=== PATIENT | male | born 1980 | race Caucasian/White ===

== ENCOUNTER 2022-11-20 08:59 | Outpatient (REF) | payer BC, SELFPAY ==
[2022-11-20 09:09] LABS: MANUAL DIFF FLAG NO
[2022-11-20 09:28] LABS: Basophils Absolute Auto 0.1 X10*3/uL (0.0-0.2); Basophils Percent Auto 1.7 % (0-2); Eosinophils Absolute Auto 0.1 X10*3/uL (0.0-0.4); Eosinophils Percent Auto 2.2 % (0-4); Hematocrit 45.6 % (42.0-52.0); Hemoglobin 15.7 g/dl (14.0-18.0); Lymphocytes Absolute Auto 1.5 X10*3/uL (1.2-4.9); Lymphocytes Percent Auto 41.2 % (20-40); Mean Corpuscular HGB Conc 34.4 g/dl (31.0-36.0); Mean Corpuscular Hemoglobin 30.2 pg (27.0-33.0); Mean Corpuscular Volume 87.7 fL (80.0-98.0); Mean Platelet Volume 8.9 fL (9.4-12.4); Monocytes Absolute Auto 0.5 X10*3/uL (0.1-1.2); Monocytes Percent Auto 12.9 % (2-11); Neutrophils Absolute Auto 1.5 x10*3/uL (2.0-8.3); Platelet Count 182 X10*3/uL (160-400); Red Cell Distribution Width 12.8 % (11.0-16.0); White Blood Count 3.6 X10*3/uL (4.8-10.8)
[2022-11-20 09:55] LABS: Alanine Aminotransferase 15 U/L (0-40); Albumin Level 4.5 g/dL (3.5-5.0); Alkaline Phosphatase 63 U/L (39-117); Anion Gap 14 (12-20); Aspartate Amino Transferase 15 U/L (5-37); Bilirubin Total 0.7 mg/dL (0.0-1.0); Blood Urea Nitrogen 17 mg/dL (9-16); Calcium 9.2 mg/dL (8.4-10.2); Carbon Dioxide 31 mmol/L (22-29); Chloride 102 mmol/L (96-108); Estimated Glomerular Filt Rate > 60; Glucose Fasting 70 mg/dL (60-99); Iron 80 mcg/dL (45-160); Percent Iron Saturation 30 % (15-50); Potassium 4.7 mmol/L (3.3-5.1); Sodium 142 mmol/L (135-145); Total Iron Binding Capacity 269 mcg/dL (228-428); Total Protein 6.9 g/dL (6.5-8.0); Unsaturated Iron Binding 189 ug/dL
[2022-11-20 10:24] LABS: Folate 5.3 ng/mL (> or = 4.0); Thyroid Stimulating Hormone 0.38 uIU/mL (0.32-4.0); Vitamin B12 822 pg/mL (200-900); Vitamin D 25-OH Total 100.5 ng/mL (>30)
[2022-11-22 02:23] LABS: Lyme Abs Screen <0.90 index
== END 2022-11-20 09:00 | disposition home or self-care (01) ==
LOC: HO.LAB 08:59
PROVIDERS: PCP Internal Medicine; Visit Provider Internal Medicine
DX: D64.9 Anemia, unspecified (principal); E89.0 Postprocedural hypothyroidism; R53.83 Other fatigue; E55.9 Vitamin D deficiency, unspecified; E53.8 Deficiency of other specified B group vitamins
CPT/HCPCS: 36415; 80053; 82306; 82607; 82746; 83540; 84443; 85025; 86617; 86618

== ENCOUNTER → 2022-11-23 13:52 | Outpatient (BNV) | payer BC, SELFPAY | PROVIDERS: PCP Internal Medicine; Visit Provider Internal Medicine Medical Oncology | DX: D72.819 Decreased white blood cell count, unspecified (principal) | CPT/HCPCS: 99204; 99213 ==

== ENCOUNTER 2022-12-08 10:21 | Outpatient (REF) | payer BC, SELFPAY ==
[2022-12-08 10:37] LABS: MANUAL DIFF FLAG NO
[2022-12-08 10:55] LABS: Basophils Absolute Auto 0.1 X10*3/uL (0.0-0.2); Basophils Percent Auto 2.8 % (0-2); Eosinophils Absolute Auto 0.1 X10*3/uL (0.0-0.4); Eosinophils Percent Auto 3.4 % (0-4); Hematocrit 45.6 % (42.0-52.0); Hemoglobin 15.6 g/dl (14.0-18.0); Lymphocytes Absolute Auto 1.4 X10*3/uL (1.2-4.9); Lymphocytes Percent Auto 42.9 % (20-40); Mean Corpuscular HGB Conc 34.2 g/dl (31.0-36.0); Mean Corpuscular Hemoglobin 30.4 pg (27.0-33.0); Mean Corpuscular Volume 88.7 fL (80.0-98.0); Monocytes Absolute Auto 0.4 X10*3/uL (0.1-1.2); Monocytes Percent Auto 11.6 % (2-11); Neutrophils Absolute Auto 1.3 x10*3/uL (2.0-8.3); Neutrophils Percent Auto 39.3 % (45-73); Platelet Count 214 X10*3/uL (160-400); Red Blood Count 5.14 X10*6/uL (4.60-5.80); Red Cell Distribution Width 13.1 % (11.0-16.0); White Blood Count 3.2 X10*3/uL (4.8-10.8)
[2022-12-08 11:26] LABS: Alanine Aminotransferase 15 U/L (0-40); Albumin Level 4.6 g/dL (3.5-5.0); Alkaline Phosphatase 69 U/L (39-117); Anion Gap 14 (12-20); Aspartate Amino Transferase 15 U/L (5-37); Bilirubin Total 0.7 mg/dL (0.0-1.0); Blood Urea Nitrogen 12 mg/dL (9-16); C Reactive Protein < 0.10 mg/dL (< or = 0.50); Calcium 10.2 mg/dL (8.4-10.2); Carbon Dioxide 30 mmol/L (22-29); Chloride 104 mmol/L (96-108); Estimated Glomerular Filt Rate > 60; Glucose Random 85 mg/dL (60-115); Lactate Dehydrogenase 163 U/L (118-273); Potassium 5.1 mmol/L (3.3-5.1); Sodium 143 mmol/L (135-145); Total Protein 7.3 g/dL (6.5-8.0)
[2022-12-08 11:39] LABS: Erythrocyte Sedimentation Rate 2 MM/HR (0-15)
[2022-12-08 11:56] LABS: Creatinine Urine 114.81 mg/dL; Total Protein Urine Random < 7 mg/dL (<12)
[2022-12-10 15:03] LABS: Complement C3 91 mg/dL (82-185)
[2022-12-10 17:24] LABS: Calcium, Random Urine 17.5 mg/dL
[2022-12-11 10:48] LABS: Calcium, Ionized 5.2 mg/dL (4.7-5.5)
[2022-12-11 16:44] LABS: Calcium (PTHI) 9.9 mg/dL (8.6-10.3); PTHI 27 pg/mL (16-77)
[2022-12-12 06:53] LABS: Anti DNA DS Antibody 1 IU/mL; Antibody to SS-A Antigen <1.0 NEG AI (<1.0 NEG); Antibody to SS-B Antigen <1.0 NEG AI (<1.0 NEG); SM/Ribonucleoprotein Ab <1.0 NEG AI (<1.0 NEG); Smith Protein <1.0 NEG AI (<1.0 NEG)
== END 2022-12-08 10:22 | disposition home or self-care (01) ==
LOC: HO.LAB 10:21
PROVIDERS: Internal Medicine Medical Oncology; Absent Provider Internal Medicine; PCP Internal Medicine; Visit Provider Internal Medicine Rheumatology
DX: D72.819 Decreased white blood cell count, unspecified (principal); E83.52 Hypercalcemia; R76.8 Other specified abnormal immunological findings in serum
CPT/HCPCS: 36415; 80053; 82310; 82330; 82550; 83615; 83970; 84156; 85025; 85652; 86140; 86160; 86225; 86235

== ENCOUNTER 2023-01-16 10:52 | Outpatient (AMB) | payer BC, SELFPAY ==
--- NOTE | 2023-01-16 10:54 | MHC.OFFVIS ---
Intake Vital Signs 01/16/23 10:55 Height 5 ft 6 in Weight 146 lb 13.246 oz BMI 23.7 BP 108/82 Blood Pressure Location Rt brachial Position Sitting Pulse 116 H Pulse Source Pulse Oximeter Temp 97.9 F Temp Source Skin Pulse Oximetry (%) 98 Intake Visit Reasons: + KAMALJIT - Confirmed Intake Note: New pt presents today for consult. Denies pain Referred by Hematology for leukopenia and fatigue. 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 Accompanied by: Self / Same As Patient Allergies zolpidem [From Ambien] Adverse Reaction (Intermediate, Verified 01/16/23 10:58) loopiness Medication List - Last Reconciled 01/16/23 by Kathie Sam MD atorvastatin 20 mg PO BEDTIME blood sugar diagnostic ([employer] Verio test strips) As directed bupropion HCl 300 mg PO DAILY gabapentin 300 mg PO BEDTIME 90 days insulin aspart U-100 (Novolog U-100 Insulin aspart) Sliding scale subcutaneously daily; insulin degludec (Tresiba U-100 Insulin) Sliding scale subcutaneously daily; insulin syr/ndl U100 half shaniqua (BD Veo Insulin Syringe Ultra-Fine (half unit)) As directed levothyroxine (Levoxyl) 175 mcg PO DAILY 90 days modafinil 100 mg PO BID HPI HPI Comments History of Present Illness Details This is a 42-year-old male who presents for evaluation of a positive KAMALJIT. KAMALJIT was checked in the setting of neutropenia. Patient states that he was diagnosed with type 1 diabetes at age 3 and was also diagnosed with Graves disease. For the last 10 years patient has had fatigue. Recently he was evaluated by Hematology for neutropenia and fatigue. Patient states that he sleeps 8 hours at night but does wake up feeling significantly fatigued. He snores occasionally and it is usually positional. He has skin rashes on his forehead, lateral to his nose and in the mustache and de leon area, does rashes are a little worse in the summer, improved with Nizoral cream and ketoconazole oil. He has had does rashes for approximately 10 years. Denies ever getting a butterfly rash on his cheeks. He denies any joint pain, swelling or morning stiffness. Denies any blood or frothy in the urine. Denies any history of DVT/PE. Denies any fevers or significant weight change. [facility] Medical History Diabetes mellitus type 1 Graves disease Physical exam Postoperative hypothyroidism Surgical History History of shoulder surgery History of thyroid surgery History of wisdom tooth extraction Family History Mother No problems noted. Father No problems noted. 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 Current occupational exposures/hazards: No Cognitive needs: No Hearing needs: No Vision needs: No Review of Systems Const Reports fatigue, Denies weight gain and Denies weight loss ENT Denies sore throat Resp Reports no additional complaints Musc Denies arthralgias, Denies joint swelling and Denies stiffness Skin/Breast Reports rash Endo Reports fatigue Physical Exam Vital Signs: Last Vital Signs Temp 97.9 F 01/16/23 10:55 Pulse 116 H 01/16/23 10:55 BP 108/82 01/16/23 10:55 Pulse Ox 98 01/16/23 10:55 BMI result Body Mass Index 23.7 Const General: cooperative, healthy appearing and comfortable Nutritional Appearance: average body habitus Orientation/consciousness: patient oriented x3 Limitations: no limitations HEENT Head: Yes normocephalic and Yes atraumatic Mouth: moist mucous membranes Resp Effort & Inspection: normal respiratory effort and able to speak in complete sentences Auscultation: clear to auscultation bilaterally Cardio Rate: regular rate Rhythm: regular rhythm Heart sounds: S1 normal heart sound present GI Inspection: No distended Palpation (GI): Soft to palpation and nontender Skin Other: Rashes on his forehead, lateral to his nose, few scaly lesions seen on his de leon No malar rash Neuro General: patient oriented x3 Extrem Other: No active synovitis Normal nailfold capillaroscopy Reduced left shoulder abduction (was operated on) Assessment & Plan Assessment & Plan (1) KAMALJIT positive: Code(s): R76.8 - Other specified abnormal immunological findings in serum Plan: This is a 42-year-old male who presents for evaluation of a positive KAMALJIT 1-320 DFS in the setting of neutropenia. I do not see any signs of autoimmune rheumatic disease upon my evaluation. Comprehensive sub serology is normal with normal inflammatory markers. Patient's main complaint is fatigue which can be related to poor sleep. I suggested that patient ask for a sleep study from his PCP. Advised patient to come back for evaluation if he gets any new symptoms suggestive of a connective tissue disease such as new rashes, joint pain swelling or stiffness, blood or frothy in the urine Follow-up in 1 year Coding Level of Care Code New Pt Level 3 (43489) Diagnoses KAMALJIT positive R76.8
[2023-01-16 10:55] VITALS: BP 108/82; PULSE 116; TEMP 36.6; O2SAT 98; BMI 23.7
== END 2023-01-16 11:49 | disposition home or self-care (01) ==
PROVIDERS: PCP Internal Medicine; Visit Provider Student in an Organized Health Care Education/Training Program
DX: R76.8 Other specified abnormal immunological findings in serum (principal)
CPT/HCPCS: 99203

== ENCOUNTER → 2023-01-16 10:52 | Outpatient (BNVA) | payer BC, SELFPAY | PROVIDERS: PCP Internal Medicine; Visit Provider Student in an Organized Health Care Education/Training Program ==

== ENCOUNTER 2023-11-25 17:22 | Outpatient (AMB) | payer BC, SELFPAY ==
[2023-11-25 17:27] VITALS: BP 112/80; BMI 25.8
--- NOTE | 2023-11-25 17:27 | A.OFFPC_ITS ---
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 Accompanied by: Self / Same As Patient Allergies zolpidem [From Ambien] Adverse Reaction (Intermediate, Verified 11/25/23 17:40) loopiness Medication List - Last Reconciled 11/25/23 by Alysha Armendariz MD atorvastatin 20 mg PO BEDTIME blood sugar diagnostic (OneTouch Verio test strips) As directed clonazepam 1 mg PO BEDTIME PRN gabapentin 600 mg PO BEDTIME insulin aspart U-100 (Novolog U-100 Insulin aspart) Sliding scale subcutaneously daily; insulin degludec (Tresiba U-100 Insulin) Sliding scale subcutaneously daily; insulin syr/ndl U100 half shaniqua (BD Veo Insulin Syringe Ultra-Fine (half unit)) As directed levothyroxine (Levoxyl) 175 mcg PO DAILY 90 days modafinil 100 mg PO BID Tobacco use date assessed: 11/25/23 Dental Screening Dental Screen Date: 11/25/23 Did you have a dental visit in the last 12 months?: No Did you have a dental problem in the last 6 months where you did not have access to dental care?: No Was dental information given to patient?: Patient has dentist HPI HPI Comments History of Present Illness Details This is a 43-year-old male with diabetes mellitus type 1 and mild major depression that comes for his physical exam. A1c within goal. Last diabetic eye exam was less than a year ago and was with no diabetic retinopathy. Depression stable with counseling and follow-up visit requested. No chest pain or shortness on breath. Follows with endocrinology. [facility] Medical History (Updated 11/25/23 @ 17:58 by Alysha Armendariz MD) Physical exam Postoperative hypothyroidism Graves disease Diabetes mellitus type 1 Surgical History History of wisdom tooth extraction History of shoulder surgery History of thyroid surgery Family History Mother No problems noted. Father No problems noted. 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 1. Little interest or pleasure in doing things: not at all 2. Feeling down, depressed, or hopeless: several days 3. Trouble falling or staying asleep, or sleeping too much: not at all 4. Feeling tired or having little energy: not at all 5. Poor appetite or overeating: not at all 6. Feeling bad about yourself - or that you are a failure or have let yourself or your family down: not at all 7. Trouble concentrating on things, such as reading the newspaper or watching television: not at all 8. Moving or speaking so slowly that other people could have noticed. Or the opposite - being so fidgety or restless that you have been moving around a lot more than usual: not at all 9. Thoughts that you would be better off or of hurting yourself in some way: not at all Total score: 1 Depression Screening Interpretation: Positive Depression Screening Follow-up: Existing condition, In treatment, Community Mental Health Worker F/U and Follow- up Visit Requested Depression Screening Done: Yes 71010 - PHQ-9 Billing: Yes Source: Developed by Drs. Oscar Santos, Kinza Aiken, Jim Conroy and colleagues, with an educational josefina from [employer] Thrive Questionnaire Date Thrive assessed: 11/25/23 I am a: Patient What is your living situation today?: I have a steady place to live Within the past 12 months, did the food you bought not last and you didn't have the money to get more?: Never true Within the past 12 months, did you worry whether your food would run out before you got money to buy more?: Never true Do you have trouble paying for medicines?: No Do you have trouble getting transportation to medical appointments?: No Do you have trouble paying your heating and electricity bill?: No Do you have trouble taking care of your child, family member or friend?: No Do you have trouble with day-to-day activities such as bathing, preparing meals, shopping, managing finances, etc.?: No Are you currently unemployed and looking for a job?: No Are you interested in more education?: No Please select the resources that you would like help with: None Currently or been in a relationship where the following occur: no concerns reported THRIVE Score: 0 AUDIT C Alcohol Use Questionnaire (AUDIT-C) 1. How often do you have a drink containing alcohol?: Monthly or less 2. How many drinks containing alcohol do you have on a typical day when you are drinking?: 1 or 2 3. How often do you have six or more drinks on one occasion?: Never Total Score: 1 Score Reviewed/Action Taken: No SHEILA-7 AMB Questionnaire SHEILA-7 Date SHEILA - 7 assessed: 11/25/23 Feeling nervous, anxious, or on edge: 1 = Several days Not being able to stop or control worryin = Not at all Worrying too much about different things: 0 = Not at all Trouble relaxin = Not at all Being so restless that it is hard to sit still: 0 = Not at all Becoming easily annoyed or irritable: 0 = Not at all Feeling afraid as if something awful might happen: 0 = Not at all Total SHEILA-7 score (0-4 normal; 5-9 mild; 10-14 moderate; 15-21 severe): 1 Source: Developed by Drs. Oscar Santos, Kinza Aiken, Jim Conroy and colleagues, with an educational josefina from [employer] SHEILA-7 Assessment Billing SHEILA-7 Assessment Tool: SHEILA-7 Assessment 52302 Review of Systems Const All systems reviewed & are unremarkable except as noted in HPI and below Card Denies chest pain at rest, Denies chest pain with activity, Denies edema, Denies irregular heart rhythm, Denies claudication, Denies dyspnea, Denies dyspnea on exertion, Denies orthopnea, Denies paroxysmal nocturnal dyspnea and Denies slow heart rate Resp Denies cough, Denies dyspnea and Denies dyspnea on exertion GI Denies abdominal pain, Denies change in bowel habits, Denies excessive flatus, Denies nausea and Denies vomiting Denies urinary hesitancy, Denies urinary incontinence and Denies urinary urgency Physical exam (Primary Care) Vital Signs: Last Vital Signs BP 112/80 11/25/23 17:27 BMI result Body Mass Index 25.8 Tobacco/Smoking Status: Tobacco use Status Tobacco use date assessed 11/25/23 11/25/23 17:32 Patient Tobacco Use Status Former Tobacco user 11/25/23 17:32 Tobacco use type Cigarette 11/25/23 17:32 e-Cigarette/Vaping Use Never Used 11/25/23 17:32 PHQ-9: PHQ-9 Score PHQ-9: Total score 0 11/25/23 17:32 Depression Screening Interpretation: Positive Depression Screening Follow-up: Existing condition, In treatment, Community Mental Health Worker F/U and Follow- up Visit Requested Thrive Assessment: Date of Thrive Assessment Date Thrive assessed 11/25/23 11/25/23 17:32 Currently or been in a relationship where the following occur: no concerns reported [facility] Head: Yes normal to inspection, Yes normocephalic and Yes atraumatic Ears: external ears normal Eyes General: appearance normal, both eyes and all related structures Eyelids: Yes eyelids normal Conjunctivae: conjunctivae normal Neck Neck: Yes normal visual inspection and Yes supple Resp Effort & Inspection: normal respiratory effort Auscultation: clear to auscultation bilaterally Cardio Jugular venous distension: no JVD Rate: regular rate Rhythm: regular rhythm Heart sounds: S1 normal heart sound present and S2 normal heart sound present GI Inspection: Yes normal to inspection Palpation (GI): Soft to palpation and nontender Auscultation: normal bowel sounds Skin General skin exam: no rashes or lesions noted Neuro General: no focal motor deficits Extrem General: Yes full ROM Psych Appearance: grossly normal Results AMB Hemoglobin A1c AMB Hemoglobin A1c 5.0 % Last Edit by RED Pedro on 11/25/23 17:4 3 Assessment and Plan Assessment & Plan (1) Physical exam: Code(s): Z00.00 - Encounter for general adult medical examination without abnormal findings Plan: Repeat in a year. (2) Mild major depression: Code(s): F32.0 - Major depressive disorder, single episode, mild Plan: Continue counseling. Follow-up visit requested. (3) Diabetes mellitus type 1: Code(s): E10.9 - Type 1 diabetes mellitus without complications Qualifiers: Diabetes mellitus complication status: without complication Qualified Code(s): E10.9 - Type 1 diabetes mellitus without complications Plan: Continue insulin. Follow-up with endocrinology. A1c goal is equal or less than 7%. Orders: Orders 2 Lipid Panel Today E78.5 - Hyperlipidemia, unspecified Comprehensive [place]. Panel Fast Today E10.9 - Type 1 diabetes mellitus without complications AMB Hemoglobin A1c Today E10.9 - Type 1 diabetes mellitus without complications Microalbumin, Random (w Creat) Today E11.9 - Type 2 diabetes mellitus without complications Thyroid Stimulating Hormone Today E89.0 - Postprocedural hypothyroidism Medications: Changed From gabapentin 300 mg PO BEDTIME 90 days 90 caps 1RF To gabapentin 600 mg PO BEDTIME Coding Level of Care Code Est Pt Prev Care 40-64y(26504) Diagnoses Physical exam Z00.00 Mild major depression F32.0 Type 1 diabetes mellitus without complication E10.9 Diabetes mellitus complication status: without complication Additional Codes SHEILA-7 Assessment Billing - SHEILA-7 Assessment Tool: SHEILA-7 Assessment 05818 ([id number]) Time Spent (min) 30
== END 2023-11-25 17:54 | disposition home or self-care (01) ==
PROVIDERS: PCP Internal Medicine; Visit Provider Internal Medicine
DX: Z00.00 Encounter for general adult medical examination without abnormal findings (principal); F32.0 Major depressive disorder, single episode, mild; E10.9 Type 1 diabetes mellitus without complications
CPT/HCPCS: 83036; 99396

== ENCOUNTER → 2024-07-13 09:30 | Outpatient (BNV) | payer BC, SELFPAY | PROVIDERS: Visit Provider Psychiatry & Neurology Psychiatry | DX: F32.9 Major depressive disorder, single episode, unspecified (principal); F43.10 Post-traumatic stress disorder, unspecified | CPT/HCPCS: 90792 ==

== ENCOUNTER 2024-07-15 10:00 | Outpatient (RCR) | payer BC, SELFPAY ==
[2024-07-13 08:20] VITALS: BMI 25.8
--- NOTE | 2024-07-13 10:41 | HO.PS.ADMBH ---
[facility] Date of Service: 07/13/24 Chief Complaint: depression Sources of Information: patient interviewed and chart reviewed HPI Narrative: Reviewed nursing admission note. Significant depression, recent exacerbation of PTSD symptoms, suicidal thoughts and firearms have been secured and made safe. Today: Reports being hopeful he can get help managing PTSD symptoms both from a medication and nonmedication perspective. Also help with depression. Main symptoms are feeling depressed and sad, staying in bed, isolating, less productive at work, lower appetite, initial insomnia, suicidal thoughts. Denies current plans or intent. Hopeful around programming changes. Regarding sleep no history of nightmares. Reported that PTSD symptoms were exacerbated recently with what patient describes as a benign trigger such as they were discussing chores, dissociating, hard to ground self and this has been happening more frequently Current prescriber is Dr. Silva Estrada for the last 2 years. Has been on hydroxyzine, gabapentin and Klonopin for the best part of 2 years. Has tried multiple SSRIs without benefit. Wellbutrin caused higher anxiety. Side effects from venlafaxine. Trazodone caused excess sedation. Was on propranolol when had hyperthyroidism. Has never been on prazosin, Cymbalta, Abilify, Seroquel or buspirone or remeron We did discuss medication options, and decided to trial Remeron 7.5 mg-15mg. Risks and benefits discussed. We also discussed low-dose gabapentin during the daytime for anxiety symptoms, rather than an additional medication for anxiety. Will follow-up at the end of this week. Past Psychiatric History: Diagnosis of major depressive disorder and complex PTSD. Has had major depression since childhood. Multiple medication trials. Last inpatient episode was 7 years ago. No history of suicide attempts but suicidal thoughts and plans. Current prescriber is Dr. Silva Estrada for the last 2 years. Has been on hydroxyzine, gabapentin and Klonopin for the best part of 2 years. Has tried multiple SSRIs without benefit. Wellbutrin caused higher anxiety. Side effects from venlafaxine. Trazodone caused excess sedation. Was on propranolol when had hyperthyroidism. Has never been on prazosin, Cymbalta, Abilify, Seroquel or buspirone or remeron. [facility] Medical History (Updated 07/14/24 @ 11:16 by Jw Arnold MD) Chronic fatigue Physical exam Postoperative hypothyroidism Graves disease Diabetes mellitus type 1 Surgical History History of wisdom tooth extraction History of shoulder surgery History of thyroid surgery Social History: Living with agapito of over 3 years. 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 Has a 21-year-old stepdaughter. No legal issues. Substance History: Former smoker. Minimal alcohol. Some psilocybin and LSD use in the past. Trauma History: childhood Diagnostics Vital Signs (24Hr): BMI result Body Mass Index 25.8 Meds/Allergies Meds Home Medications ?Medication ?Instructions ?Recorded ?Confirmed ?Type blood sugar diagnostic (OneTouch #10 ea 11/16/21 07/14/24 History Verio test strips) insulin syr/ndl U100 half shaniqua #10 ea 11/16/21 07/14/24 History 0.3mL 31 gauge x 15/64 (BD Veo Insulin Syringe Ultra-Fine (half unit)) insulin aspart U-100 100 unit/mL See Rx Instructions subcut DAILY 01/16/23 07/14/24 History subcutaneous solution (Novolog U-100 Insulin aspart) insulin degludec 100 unit/mL See Rx Instructions subcut DAILY 01/16/23 07/14/24 History subcutaneous solution (Tresiba U-100 Insulin) modafinil 100 mg tablet 100 mg PO BID 01/16/23 07/14/24 History clonazepam 1 mg tablet 1 mg PO DAILY PRN Anxiety 11/25/23 07/14/24 History gabapentin 300 mg capsule 600 mg PO BEDTIME 11/25/23 07/14/24 History Allergies Allergies Allergy/AdvReac Type Severity Reaction Status Date / Time zolpidem [From Ambien] AdvReac Intermediate loopiness Verified 11/25/23 17:40 Mental Status Exam Mental Status Exam Narrative: Pleasant. Engaged. Casual dress and presented. Organized. Dysthymic. Suicidal thoughts but no plans or intent. Is hopeful around programming. No HI. No agitation or psychosis. Insight and judgment good Telehealth Telehealth Telehealth Platform: Other (please specify) ([employer]) Location of provider rendering services: practice address Location of patient: other ([facility]) Patient Identification confirmed using: Name, : Yes Telehealth method: video Patient verbally consented to treatment: Yes Minutes spent on Phone/Video with Pt.: 30 Assessment & Plan Assessment & Plan (1) Major depression: Status: Acute Code(s): F32.9 - Major depressive disorder, single episode, unspecified (2) PTSD (post-traumatic stress disorder): Status: Acute Code(s): F43.10 - Post-traumatic stress disorder, unspecified Plan Presents with significant depressive and PTSD symptoms. Impacting function. Could benefit from partial hospital program level of care. We did discuss medication options, and decided to trial Remeron 7.5 mg-15mg. Risks and benefits discussed. We also discussed low-dose gabapentin during the daytime for anxiety symptoms, rather than an additional medication for anxiety. Will follow-up at the end of this week. Patient educated on: diagnosis and medication risk/benefits Informed Consent: understands Reason for continued partial hosp. stay Substantial Risk for: inability to function Certification I certify that partial hospital treatment is medically necessary due to the symptoms and problems resulting from the patient's mental illness and the failure to treat the patient at the partial hospital level of care would likely result in the patient requiring inpatient psychiatric care which could not be prevented at a less intensive level of care. Time Spent With Patient Time: Total time managing care of this patient today _50___ minutes.
[2024-07-13 11:52] VITALS: BMI 24.2
[2024-07-13 11:53] VITALS: BP 111/77; PULSE 82; TEMP 36.8
--- NOTE | 2024-07-13 14:11 | PC.ADMIT ---
Patient is a 43 year old engaged to be male who was referred to [facility] by [facility] where he was evaluated secondary for c/o inc CPTSD sxs, depression with SI with intrusive thoughts of a plan with no intent. Patient reportedly contacted his therapist who recommended patient go to the ER for evaluation. Patient had a family member remove a firearm from his home as a precaution. Patient reports he does not want to have these thoughts and has no intention to follow through with the intrusive thoughts. Patient reports last Saturday his PTSD was triggered and he is unclear why. He stated it came on all of a sudden while doing chores around the house. He reports he lost 3 hours of time that day. 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 He is currently on Noxilizer to work on his mental health. Patient is alert and oriented x4. He is calm and cooperative. His thoughts are clear and logical. He presented with anxious mood and congruent affect. Patient denied SI currently. Regarding SI patient stated, I have intrusive thoughts that's what brought me here. I had a plan that was against my will. I don't actively want to hurt myself . Patient reports as a precaution he had a firearm removed from his home by a family member. Patient denied SI currently. Asked if he was able to reach out to others when having SI and plan and he stated he is able to reach out to others if needed. Patient was given a copy of his safety plan if needed. Patient drinks alcohol on occasionally. Denied this is an issue for him. Patient is dx with IDDM since age 9. He reports he is meticulous about checking his blood sugars and taking his insulin as prescribed. He stated his A1C is 5 and his blood sugars average 100. He also is on a Keto Diet. Reports no complications associated with diabetes thus far. Patient's medications reconciled with patient. Unable to get of his pharmacy thus far to confirm his medication list as no one is answering the phone. Will continue to call pharmacy to complete medication list.
--- NOTE | 2024-07-14 11:48 | PC.NURSE ---
Reviewed with Dr. Arnold that Kit Alfaro took Remeron 7.5 mg, 1/2 tab last night. He reports he slept well however is feeling very groggy this morning still in bed at 0930. He was not able to make it to program this morning as a result. Per Dr. Arnold patient is to increase Remeron to 15mg tonight as the sedation/grogginess is often less at higher doses. Informed Harleen to increase Remeron 15 mg po tonight per doctors orders.
--- NOTE | 2024-07-16 14:28 | HO.PHP ---
Client's case has been opened and reviewed in team.
== END 2024-07-15 23:59 | disposition home or self-care (01) ==
LOC: HO.PHPA 10:00
PROVIDERS: Visit Provider Psychiatry & Neurology Psychiatry
DX: F32.9 Major depressive disorder, single episode, unspecified (principal); F43.10 Post-traumatic stress disorder, unspecified
CPT/HCPCS: 90791; 90853

== ENCOUNTER 2024-08-10 14:21 | Outpatient (AMB) | payer BC, SELFPAY ==
--- NOTE | 2024-08-10 14:24 | MHC.OFFVIS ---
Intake Visit Reasons: Postvoid dribbling Intake Note: Patient is present for postvoid dribbling Urology Medication:none Antibiotic Allergy:none Blood Thinner:none Oracle Fusion Middleware Developer Required: No Allergies zolpidem [From Ambien] Adverse Reaction (Intermediate, Verified 08/10/24 14:25) loopiness Medication List - Last Reconciled 08/10/24 by Shanna Castro MD atorvastatin 20 mg PO BEDTIME 90 days blood sugar diagnostic (OneTouch Verio test strips) As directed clonazepam 1 mg PO DAILY PRN gabapentin 100 mg PO BID PRN 7 days gabapentin 600 mg PO BEDTIME insulin aspart U-100 (Novolog U-100 Insulin aspart) Sliding scale subcutaneously daily with meals. insulin degludec (Tresiba U-100 Insulin) Sliding scale subcutaneously daily. Take up to 20 units in the am and evening. insulin syr/ndl U100 half shaniqua (BD Veo Insulin Syringe Ultra-Fine (half unit)) As directed levothyroxine (Levoxyl) 175 mcg PO DAILY 90 days mirtazapine (Remeron) 15 mg PO BEDTIME 7 days modafinil 100 mg PO BID HPI Comments Details: Kit is a 43-year-old male who is here for evaluation with complaints of postvoid dribbling. He has type 1 diabetic. Comorbidity diabetes He denies dysuria gross hematuria. He denies pain with ejaculation. He states that he was using Benadryl and hydroxyzine in the past which he discontinued and noted some mild improvement in dribbling symptoms. I have discussed further evaluation with ultrasound of the urinary tract. Will consider alpha-dewey. Patient agreeable to plan [facility] Medical History (Updated 08/10/24 @ 15:18 by Shanna Castro MD) Chronic fatigue Physical exam Postoperative hypothyroidism Graves disease Diabetes mellitus type 1 Surgical History History of wisdom tooth extraction History of shoulder surgery History of thyroid surgery Family History Mother No problems noted. Father No problems noted. 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 Current occupational exposures/hazards: No Cognitive needs: No Hearing needs: No Vision needs: No Review of Systems Const All systems reviewed & are unremarkable except as noted in HPI and below Reports no additional complaints Eyes Reports no additional complaints ENT Reports no additional complaints Card Reports no additional complaints Resp Reports no additional complaints GI Reports no additional complaints Reports as per HPI Musc Reports no additional complaints Skin/Breast Reports system reviewed and no additional complaints, except as documented Neuro Reports no additional complaints Psych Reports no additional complaints Endo Reports no additional complaints Willis/Lymph Reports no additional complaints Aller/Immun Reports no additional complaints Physical Exam Const General: healthy appearing, no acute distress and well developed Orientation/consciousness: patient oriented x3 HEENT Head: Yes normocephalic and Yes atraumatic Eyes Conjunctivae: conjunctivae normal Neck Neck: Yes normal visual inspection Chest Chest palpation & inspection: normal inspection of the chest Resp Effort & Inspection: normal respiratory effort GI Inspection: Yes normal to inspection Neuro General: patient oriented x3 Extrem General: No pedal edema Psych Appearance: grossly normal Affect: normal affect Results AMB Urinalysis, Automated UA Leukoctes 0 Marci/uL Last Edit by GIORGI Sahu on 08/10/24 14:44 UA Nitrite Negative Last Edit by GIORGI Sahu on 08/10/24 14:44 UA Urobilinogen 0.2 mg/dL Last Edit by GIORGI Sahu on 08/10/24 14:44 UA Protein 15 mg/dL Last Edit by GIORGI Sahu on 08/10/24 14:44 UA pH 6.0 Last Edit by GIORGI Sahu on 08/10/24 14:44 UA Blood 0 Wes/uL Last Edit by GIORGI Sahu on 08/10/24 14:44 UA Specific [place] 1.015 Last Edit by GIORGI Sahu on 08/10/24 14:44 UA Ketone Positive Last Edit by GIORGI Sahu on 08/10/24 14:44 UA Bilirubin 0 mg/dL Last Edit by GIORGI Sahu on 08/10/24 14:44 UA Glucose 0 mg/dL Last Edit by GIORGI Sahu on 08/10/24 14:44 Results Reviewed Results Reviewed: Laboratory Last Values Urine pH (Auto) 6.0 08/10/24 14:44 Specific [place] (Auto) 1.015 08/10/24 14:44 Urine Protein (Auto) 15 mg/dL 08/10/24 14:44 Glucose (UA)(Auto) 0 mg/dL 08/10/24 14:44 Urine Ketones (Auto) Positive 08/10/24 14:44 Urine Blood (Auto) 0 Wes/uL 08/10/24 14:44 Urine Nitrite (Auto) Negative 08/10/24 14:44 Urine Bilirubin (Auto) 0 mg/dL 08/10/24 14:44 Urine Urobilinogen (Auto) 0.2 mg/dL 08/10/24 14:44 Leukocyte Esterase (Auto) 0 Marci/uL 08/10/24 14:44 Assessment & Plan Assessment & Plan (1) Benign prostatic hyperplasia (BPH) with post-void dribbling: Code(s): N40.1 - Benign prostatic hyperplasia with lower urinary tract symptoms; N39.43 - Post-void dribbling Category: Medical (2) Diabetes mellitus type 1: Code(s): E10.9 - Type 1 diabetes mellitus without complications Category: Medical Qualifiers: Diabetes mellitus complication status: without complication Qualified Code(s): E10.9 - Type 1 diabetes mellitus without complications Plan I have discussed further evaluation with ultrasound of the urinary tract. Will consider alpha-dewey. Patient agreeable to plan Orders: Orders AMB Urinalysis Automated Today Z13.9 - Encounter for screening, unspecified US retroperitoneal comp Today N39.43 - Post-void dribbling, N40.1 - Benign prostatic hyperplasia with lower urinary tract symptoms Patient Instructions: The patient had an opportunity to ask questions regarding treatment plan. The patient expressed understanding and agreement with the above treatment plan. The patient is aware they should contact our office by phone for worsening of their current condition or the appearance of new symptoms. Compliance is encouraged with any medications and followup testing that is ordered. It is a privilege to be allowed the opportunity to participate in the urologic care of your patient. If you have any questions or concerns regarding treatment for the above conditions please do not hesitate to contact me. The office telephone contact is [phone]. This note is constructed in part using voice recognition software. While every effort has been made to ensure accuracy entrepreneurship program director errors may have been included. Yours sincerely, Shanna Castro MD Coding Level of Care Code New Pt Level 4 (37767) Diagnoses Benign prostatic hyperplasia (BPH) with post-void dribbling N40.1; N39.43 Type 1 diabetes mellitus without complication E10.9 Diabetes mellitus complication status: without complication
--- OUTSIDE RECORDS SUMMARY | 2024-08-10 16:33 | XMS_ITS | Clinical Summary ---
Author Organization [facility] Address [address] [place] [address] Care Team Providers Care Sr Technical Sales Consultant Name Role Phone Renan ParadateiAlysha Primary Care Provider [phone] Allergies Active Allergy Reactions Criticality Noted Date Comments Zolpidem Delirium 01/18/2023 Medications modafiniL (PROVIGIL) 100 mg tablet Take 100 mg by mouth 2 times a day. 3 Active gabapentin (NEURONTIN) 300 mg capsule Take 300 mg by mouth every night. 3 Active buPROPion XL (WELLBUTRIN XL) 300 mg tablet Take 300 mg by mouth every morning. 3 Active BD Veo Insulin Syr, half unit, 0.3 mL 31 gauge x 15/64 syringe Patient injects up to 8 times daily; E10.9 800 each 3 3 Active Dexcom G6 Sensor device Change sensor every 10 days. E10.9 9 each 3 3 Active Dexcom G6 Transmitter device Change transmitter every 3 months. E10.9 1 each 3 3 Active OneTouch Verio test strips Patient tests 10 times daily; E10.9 900 strip 3 3 Active Tresiba U-100 Insulin 100 unit/mL solution Inject 10 units in the morning and 2-4 units in the evening; E10.9 30 mL 3 3 Active glucagon 1 mg injection Use as directed for low blood sugar. E10.9 2 each 3 3 Active levothyroxine (SYNTHROID, LEVOTHROID) 175 mcg tablet Take 1 tablet (175 mcg total) by mouth once a day. 90 tablet 4 Active atorvastatin (LIPITOR) 20 mg tablet Take 1 tablet (20 mg total) by mouth nightly. 90 tablet 4 Active NovoLOG U-100 Insulin aspart 100 unit/mL injection PATIENT INJECTS UP TO 15 UNITS DAILY E10.9 10 mL 4 Active Active Problems Problem Noted Date Diagnosed Date Type 1 diabetes mellitus 01/18/2023 Hypothyroidism, postsurgical 01/18/2023 Graves' disease 01/18/2023 Fatigue 01/18/2023 Leukopenia 11/19/2022 Immunizations Immunization Administration Dates Next Due Covid-19, Pfizer, mRNA, [place] valent, PF 30 mcg/0.3 mL dose (for ages 12 and older) 08/15/2020 Family History Medical History Relation Name Comments Autoimmune disease Neg Hx Diabetes Neg Hx Thyroid disease Neg Hx Social History Tobacco Use Types Packs/Day Years Used Date Smoking Tobacco: Former Cigarettes Smokeless Tobacco: Never Tobacco Cessation:Counseling Given: Not Answered Comments:Quit social tobacco in early Alcohol Use Standard Drinks/Week Comments Not Asked 0 (1 standard drink = 0.6 oz pur e alcohol) 1 beer per month or less Sex and Gender Information Value Date Recorded Sex Assigned at Male 11/26/2022 6:11 PM EDT Legal Sex Male 1:23 PM EDT Gender Identity Male 11/26/2022 6:11 PM EDT Sexual Orientation Straight 11/26/2022 6: 11 PM EDT Last Filed Vital Signs Vital Sign Reading Time Taken Comments Blood Pressure 116/79 01/18/2023 2:58 PM EDT Pulse 85 01/18/2023 2:58 PM EDT Temperature - - Respiratory Rate - - Oxygen Saturation - - Inhaled Oxygen Concentration - - Weight 65.8 kg (145 lb) 01/18/2023 2:58 PM EDT Height 167.6 cm (5' 6 ) 01/18/2023 2:58 PM EDT Body Mass Index 23.4 01/18/2023 2:58 PM EDT Plan of Treatment Health Maintenance Due Date Last Done Comments Basic Metabolic Panel 1982 HIV Screening 1982 Hepatitis C Screening 1982 Ophthalmology Exam 1992 Urine Microalbumin 1992 Varicella Vaccines (1 of 2 - 13+ 2-dose series) 1995 Hepatitis B Vaccines (1 of 3 - 19+ 3-dose series) 10/15 Pneumococcal Vaccine: Pediat saniya (0-5 Years) and At-Risk Patients (6-50 Years) (1 of 2 - PCV) 2001 DTaP,Tdap,and Td Vaccines (1 - Tdap) 2004 Hemoglobin A1C 07/21/2023 01/18/2023 COVID-19 Vaccine (2 - season) 02/16/202406/2020 Influenza Vaccine (#1) 2024 03/27/2022 Alcohol/Substance Use Screening 06/17/2024 Depression Screening and Follow-Up 06/17/2024 Social Drivers of Health Annual Screening 06/17/2024 RSV Vaccine (60+ years old a nd patients) (1 - 1-dose 75+ series) 2057 Procedures * Due to [place] law, this organization might not be sharing negative HIV tests. Procedure Name Priority Date/Time Associated Diagnosis Comments POCT GLYCOSYLATED HEMOGLOBIN (HGB A1C) Routine 01/18/2023 2:46 PM EDT from Last 3 Months or Most Recently Relevant to Health Maintenance Results * Due to [place] law, this organization might not be sharing negative HIV tests. * POCT Glycosylated Hemoglobin (HGB A1C), interfaced (01/18/2023 2:46 PM EDT) Hemoglobin A1C, POCT 4.6 <=5.6 % 01/18/2023 3:04 PM EDT [facility] Comment: A1C Recommendation for Non- Adults with Diabetes: <7.0% ADA 2011 Standards of Medical Care in Diabetes Blood 01/18/2023 2:46 PM EDT 01/18/2023 3:04 PM EDT us Devi Khalil MD LAB POCT ORDERABLES - DEVICE Fin al Result [facility] [address] [place] [address], from Last 3 Months or Most Recently Relevant to Health Maintenance Insurance [facility] PPO/EPO Care Teams Sr Technical Sales Consultant Relationship Specialty Start Date End Date Alysha Garza [address] [place] [address] [place] [id number] PCP - General Internal Medicine 01/18/23
--- OUTSIDE RECORDS SUMMARY | 2024-08-10 16:33 | XMS_ITS | Referral Summary ---
Author Organization [facility] Address [address] [place] [address] Care Team Providers Care Food Assembler Name Role Phone Renan MarcelloAlysha Primary Care Provider [phone] Allergies Active Allergy Reactions Criticality Noted Date [...] Administration Dates Next Due Covid-19, Pfizer, mRNA, [place] valent, PF 30 mcg/0.3 mL dose (for ages 12 and older) 08/15/2020 Social History Tobacco Use Types Packs/Day Years [...] 01/18/2023 2:58 PM EDT Plan of Treatment Not on file Procedures * Due to [place] state law, this organization might not be sharing negative HIV tests. Procedure Name Priority Date/Time Associated Diagnosis Comments POCT GLYCOSYLATED HEMOGLOBIN (HGB A1C) Routine 01/18/2023 2:46 PM EDT from Last 3 Months or Most Recently Relevant to Health Maintenance Results * Due to [place] state law, this organization might not be sharing negative HIV tests. * POCT Glycosylated Hemoglobin (HGB A1C), interfaced (01/18/2023 2:46 PM EDT) Hemoglobin A1C, POCT 4.6 <=5.6 % 01/18/2023 3:04 PM EDT [facility] Comment: A1C Recommendation for Non- Adults with Diabetes: <7.0% ADA 2011 Standards of Medical Care in Diabetes Blood 01/18/2023 2:46 PM EDT 01/18/2023 3:04 PM EDT us Devi Khalil MD LAB POCT ORDERABLES - DEVICE Fin al Result [facility] [address] [place] [address], from Last 3 Months or Most Recently Relevant to Health Maintenance Insurance [facility] PPO/EPO Care Teams Food Assembler Relationship Specialty Start Date End Date Alysha Garza [address] [place] [address] [place] [address] PCP - General Internal Medicine 01/18/23
--- OUTSIDE RECORDS SUMMARY | 2024-08-10 16:33 | XMS_ITS | Encounter Summary ---
Author Organization [facility] Address [address] [place] [address] Care Team Providers Care Mortgage Closer Name Role Phone Renan CarsoniAlysha Primary Care Provider [phone] Reason for Visit * Reason Onset Date Comments PAC Appt Request - New 12/03/2022 Encounter Details Date Type Department Care Team ([facility] st Contact Info) Description 12/03/2022 Telephone [facility] Patient [facility] [address] [place] [id number] Telephone Intake, Staff PAC Appt Request - New Social History Tobacco Use Types Packs/Day Years Used Date Smoking Tobacco: Never Assessed Sex and Gender Information Value Date Recorded Sex Assigned at Male 11/26/2022 6:11 PM EDT Legal Sex Male 1:23 PM EDT Gender Identity Male 11/26/2022 6:11 PM EDT Sexual Orientation Straight 11/26/2022 6: 11 PM EDT documented as of this encounter Miscellaneous Notes * Telephone Encounter - Melinda Sullivan - 12/03/2022 2:25 PM EDT [facility] [employer] Directive/Booking Time Frame: within 14 days Is this referral Urgent: NO RFV: Lupus? Unable to Schedule due to unable to schedule within DT time frame, within 14 days Please contact Kit at [phone] Additional Info PT is having Hemologist fax over notes and labs Thank you PAC documented in this encounter Plan of Treatment Not on file documented as of this encounter Visit Diagnoses Not on filedocumented in this encounter Care Teams Mortgage Closer Relationship Specialty Start Date End Date Alysha Garza [address] [place] [address] dr Aviva [place]icas, [place] [address] PCP - General Internal Medicine 01/18/23 documented as of this encounter
== END 2024-08-10 15:19 | disposition home or self-care (01) ==
PROVIDERS: PCP Internal Medicine; Visit Provider Urology
DX: N40.1 Benign prostatic hyperplasia with lower urinary tract symptoms (principal); N39.43 Post-void dribbling; E10.9 Type 1 diabetes mellitus without complications; Z13.9 Encounter for screening, unspecified
CPT/HCPCS: 99204

== ENCOUNTER → 2024-08-10 14:21 | Outpatient (BNVA) | payer BC, SELFPAY | PROVIDERS: PCP Internal Medicine; Visit Provider Urology | DX: N40.1 Benign prostatic hyperplasia with lower urinary tract symptoms (principal); N39.43 Post-void dribbling; E10.9 Type 1 diabetes mellitus without complications | CPT/HCPCS: 81003 ==

== ENCOUNTER 2024-09-03 15:02 | Outpatient (REF) | payer BC, SELFPAY ==
--- NOTE | ~2024-09-03 | US_ITS ---
EXAMINATION: US RETROPERITONEUM HISTORY: N40.1 - Benign prostatic hyperplasia with lower urinary tract symptoms TECHNIQUE: Real-time grayscale ultrasound imaging of the kidneys was performed and images were reviewed. COMPARISON: There are no prior studies for comparison. FINDINGS: Right kidney: The right kidney measures 11.4 x 3.6 x 5 x 5 cm. Renal parenchymal echotexture and thickness are normal. There are no masses. There is no hydronephrosis or renal calculi. Left Kidney: The left kidney measures 10.6 x 4.7 x 4.8 cm. Renal parenchymal echotexture and thickness are normal. There are no masses. There is no hydronephrosis or renal calculi. There are tiny calcifications of the bladder wall. The urinary bladder is otherwise unremarkable. Bilateral ureteral jets are identified. Before voiding, the urinary bladder measured 10.8 x 8.7 x 9.3 cm, for an estimated volume of 458 mL. After voiding, the urinary bladder measured 3.4 x 3.9 x 6.7 cm, for an estimated volume of 47 mL. US/US retroperitoneal comp IMPRESSION: Small calcifications of the bladder wall. Otherwise unremarkable renal ultrasound. Post void bladder residual of 47. Electronically signed by: Oscar Huerta MD 09/04/2024 07:45 AM EDT
--- OUTSIDE RECORDS SUMMARY | 2024-09-03 17:25 | XMS_ITS | Referral Summary ---
Author Organization [facility] Address [address] [place] [address] Care Team Providers Care Quill Fixer Name Role Phone Renan MarcelloAlysha Primary Care Provider [phone] Allergies Active Allergy Reactions Criticality Noted Date [...] Administration Dates Next Due Covid-19, Pfizer, mRNA, [place] valent, PF 30 mcg/0.3 mL dose (for [...] Not on file Procedures * Due to [place] state law, this organization might not be sharing negative HIV tests. Procedure Name Priority Date/Time Associated Diagnosis Comments POCT GLYCOSYLATED HEMOGLOBIN (HGB A1C) Routine 01/18/2023 2:46 PM EDT from Last 3 Months or Most Recently Relevant to Health Maintenance Results * Due to [place] state law, this organization might not be sharing negative HIV tests. * POCT Glycosylated Hemoglobin (HGB A1C), interfaced (01/18/2023 2:46 PM EDT) Hemoglobin A1C, POCT 4.6 <=5.6 % 01/18/2023 3:04 PM EDT [facility] Comment: A1C Recommendation for Non- Adults with Diabetes: <7.0% ADA 2011 Standards of Medical Care in Diabetes Blood 01/18/2023 2:46 PM EDT 01/18/2023 3:04 PM EDT us Devi Khalil MD LAB POCT ORDERABLES - DEVICE Fin al Result [facility] [address] [place] [address], from Last 3 Months or Most Recently Relevant to Health Maintenance Insurance [facility] PPO/EPO Care Teams Quill Fixer Relationship Specialty Start Date End Date Alysha Garza [address] [place] [address] [place] [address] PCP - General Internal Medicine 01/18/23
--- OUTSIDE RECORDS SUMMARY | 2024-09-03 17:25 | XMS_ITS | Clinical Summary ---
Author Organization [facility] Address [address] [place] [address] Care Team Providers Care Superior Court Justice Name Role Phone Renan ParadateiAlysha Primary Care Provider [phone] Allergies Active Allergy Reactions Criticality Noted Date [...] Administration Dates Next Due Covid-19, Pfizer, mRNA, [place] valent, PF 30 mcg/0.3 mL dose (for [...] 75+ series) 2057 Procedures * Due to [place] [employer] law, this organization might not be sharing negative HIV tests. Procedure Name Priority Date/Time Associated Diagnosis Comments POCT GLYCOSYLATED HEMOGLOBIN (HGB A1C) Routine 01/18/2023 2:46 PM EDT from Last 3 Months or Most Recently Relevant to Health Maintenance Results * Due to [place] [employer] law, this organization might not be sharing negative HIV tests. * POCT Glycosylated Hemoglobin (HGB A1C), interfaced (01/18/2023 2:46 PM EDT) Hemoglobin A1C, POCT 4.6 <=5.6 % 01/18/2023 3:04 PM EDT [facility] Comment: A1C Recommendation for Non- Adults with Diabetes: <7.0% ADA 2011 Standards of Medical Care in Diabetes Blood 01/18/2023 2:46 PM EDT 01/18/2023 3:04 PM EDT us Devi Khalil MD LAB POCT ORDERABLES - DEVICE Fin al Result [facility] [address] [place] [address], from Last 3 Months or Most Recently Relevant to Health Maintenance Insurance [facility] PPO/EPO Care Teams [address] Justice Relationship Specialty Start Date End Date Alysha Garza [address] [place] [address] [place] [address] PCP - General Internal Medicine 01/18/23
--- OUTSIDE RECORDS SUMMARY | 2024-09-03 17:25 | XMS_ITS | Encounter Summary ---
Author Organization [facility] Address [address] [place] [address] Care Team Providers Care Pan Devulcanizer Name Role Phone Renan CarsoniAlysha Primary Care Provider [phone] Reason for Visit * Reason Onset Date Comments PAC Appt Request - New 12/03/2022 Encounter Details Date Type Department Care Team ([facility] st Contact Info) Description 12/03/2022 Telephone [facility] Patient Access Center [address] [place] [id number] Telephone Intake, Staff PAC Appt Request - [...] within 14 days Please contact Kit at [phone] Additional Info PT is having Hemologist fax over notes and labs Thank you PAC documented in this encounter Plan of Treatment Not on file documented as of this encounter Visit Diagnoses Not on filedocumented in this encounter Care Teams Pan Devulcanizer Relationship Specialty Start Date End Date Alysha Garza [address] [place] [address] dr Aviva [place]icas, [place] [address] PCP - General Internal Medicine 01/18/23 documented as of this encounter
== END 2024-09-03 15:03 | disposition home or self-care (01) ==
LOC: HO.US 15:02
PROVIDERS: PCP Internal Medicine; Visit Provider Urology
DX: N40.1 Benign prostatic hyperplasia with lower urinary tract symptoms (principal); N39.43 Post-void dribbling
CPT/HCPCS: 76770

== ENCOUNTER → 2024-09-03 15:04 | Outpatient (BNV) | payer BC, SELFPAY | PROVIDERS: PCP Internal Medicine; Visit Provider Radiology Diagnostic Radiology | DX: N40.1 Benign prostatic hyperplasia with lower urinary tract symptoms (principal); N32.89 Other specified disorders of bladder | CPT/HCPCS: 76770 ==

== ENCOUNTER 2024-09-10 14:48 | Outpatient (AMB) | payer BC, SELFPAY ==
--- NOTE | 2024-09-10 11:59 | MHC.OFFVIS ---
Intake Visit Reasons: 4w/US Intake Note: Patient is present for 4 week follow up/US Urology Medication:none Antibiotic Allergy:none Blood Thinner:none Cryptologic Technician Operator/Analyst Required: No Allergies zolpidem [From Ambien] Adverse Reaction (Intermediate, Verified 09/10/24 14:50) loopiness Medication List - Last Reconciled 09/10/24 by Shanna Castro MD alfuzosin ER 10 mg PO DAILY atorvastatin 20 mg PO BEDTIME 90 days blood sugar diagnostic (OneTouch Verio test strips) As directed clonazepam 1 mg PO DAILY PRN insulin aspart U-100 (Novolog U-100 Insulin aspart) Sliding scale subcutaneously daily with meals. insulin degludec (Tresiba U-100 Insulin) Sliding scale subcutaneously daily. Take up to 20 units in the am and evening. insulin syr/ndl U100 half shaniqua (BD Veo Insulin Syringe Ultra-Fine (half unit)) As directed levothyroxine (Levoxyl) 175 mcg PO DAILY 90 days modafinil 100 mg PO BID HPI Comments Details: 09/10/24-- History of Present Illness The patient is a 43-year-old male presenting with urinary symptoms management and evaluation. He reports persistent post-void dribbling, noted to be ongoing and bothersome, affecting his quality of life. The symptoms began subsequent to the use of hydroxyzine, which caused urinary retention, with some symptomatic relief upon cessation. His medical history is significant for type 1 diabetes mellitus controlled by insulin injections. Previous intermittent use of gabapentin for sleep, discontinued approximately one month prior, did not resolve urinary symptoms. Current management techniques include double voiding and manual perineal pressure, though efficacy varies. The chronic nature of symptoms and associated distress has led to this consultation. Urinary Symptoms Review - Post-void dribbling frequent and distressing - Symptoms persist despite cessation of hydroxyzine - Persistent despite discontinuation of gabapentin - Attempts management through double voiding and perineal pressure without consistent success Results Tests and Diagnostics: - Ultrasound of kidneys and bladder: Normal kidneys; bladder within normal limits with nonspecific small calcifications, adequate emptying noted. 08/10/24--Kit is a 43-year-old male who is here for evaluation with complaints of postvoid dribbling. He has type 1 diabetic. Comorbidity diabetes He denies dysuria gross hematuria. He denies pain with ejaculation. He states that he was using Benadryl and hydroxyzine in the past which he discontinued and noted some mild improvement in dribbling symptoms. I have discussed further evaluation with ultrasound of the urinary tract. Will consider alpha-dewey. Patient agreeable to plan [facility] Medical History Chronic fatigue Physical exam Postoperative hypothyroidism Graves disease Diabetes mellitus type 1 Surgical History History of wisdom tooth extraction History of shoulder surgery History of thyroid surgery Family History Mother No problems noted. Father No problems noted. 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 Current occupational exposures/hazards: No Cognitive needs: No Hearing needs: No Vision needs: No Telehealth Telehealth Telehealth Platform: [employer] Location of provider rendering services: practice address Location of patient: address on file Patient Identification confirmed using: Name, : Yes Telehealth method: voice only Patient verbally consented to treatment: Yes Patient verbally consented to billing insurance company: Yes Patient informed of any privacy concerns related to visit: Yes Minutes spent on Phone/Video with Pt.: 16 Results Reviewed Results Reviewed: Date of Service: 09/03/24 EXAMINATION: US RETROPERITONEUM HISTORY: N40.1 - Benign prostatic hyperplasia with lower urinary tract symptoms TECHNIQUE: Real-time grayscale ultrasound imaging of the kidneys was performed and images were reviewed. COMPARISON: There are no prior studies for comparison. FINDINGS: Right kidney: The right kidney measures 11.4 x 3.6 x 5 x 5 cm. Renal parenchymal echotexture and thickness are normal. There are no masses. There is no hydronephrosis or renal calculi. Left Kidney: The left kidney measures 10.6 x 4.7 x 4.8 cm. Renal parenchymal echotexture and thickness are normal. There are no masses. There is no hydronephrosis or renal calculi. There are tiny calcifications of the bladder wall. The urinary bladder is otherwise unremarkable. Bilateral ureteral jets are identified. Before voiding, the urinary bladder measured 10.8 x 8.7 x 9.3 cm, for an estimated volume of 458 mL. After voiding, the urinary bladder measured 3.4 x 3.9 x 6.7 cm, for an estimated volume of 47 mL. IMPRESSION: Small calcifications of the bladder wall. Otherwise unremarkable renal ultrasound. Post void bladder residual of 47. Assessment & Plan Assessment & Plan (1) Benign prostatic hyperplasia (BPH) with post-void dribbling: Code(s): N40.1 - Benign prostatic hyperplasia with lower urinary tract symptoms; N39.43 - Post-void dribbling Category: Medical (2) Diabetes mellitus type 1: Code(s): E10.9 - Type 1 diabetes mellitus without complications Category: Medical Qualifiers: Diabetes mellitus complication status: without complication Qualified Code(s): E10.9 - Type 1 diabetes mellitus without complications Plan Rapaflo 8mg daily fu in 3 months Medications: New silodosin (Rapaflo) must administer with a meal/food 8 mg PO DAILY 30 caps 5RF Patient Instructions: The patient had an opportunity to ask questions regarding treatment plan. The patient expressed understanding and agreement with the above treatment plan. The patient is aware they should contact our office by phone for worsening of their current condition or the appearance of new symptoms. Compliance is encouraged with any medications and followup testing that is ordered. It is a privilege to be allowed the opportunity to participate in the urologic care of your patient. If you have any questions or concerns regarding treatment for the above conditions please do not hesitate to contact me. The office telephone contact is [phone]. This note is constructed in part using voice recognition software. While every effort has been made to ensure accuracy rescue worker errors may have been included. Yours sincerely, Shanna Castro MD Scribe Plan - Not visible on output: Patient was informed and verbally consented to the use of an ambient scribe for clinic note documentation during this visit. Coding Level of Care Code Tele Est Pt Level 4 (71634) Diagnoses Benign prostatic hyperplasia (BPH) with post-void dribbling N40.1; N39.43 Type 1 diabetes mellitus without complication E10.9 Diabetes mellitus complication status: without complication
== END 2024-09-10 16:39 | disposition home or self-care (01) ==
LOC: HO.HUSH 14:48
PROVIDERS: PCP Internal Medicine; Visit Provider Urology
DX: N40.1 Benign prostatic hyperplasia with lower urinary tract symptoms (principal); N39.43 Post-void dribbling; E10.9 Type 1 diabetes mellitus without complications
CPT/HCPCS: 99214

== ENCOUNTER → 2024-09-10 14:48 | Outpatient (BNVA) | payer BC, SELFPAY | PROVIDERS: PCP Internal Medicine; Visit Provider Urology ==

== ENCOUNTER 2024-11-25 17:18 | Outpatient (AMB) | payer BC, SELFPAY ==
--- NOTE | 2024-11-25 17:26 | A.OFFPC_ITS ---
Vital Signs 11/25/24 17:27 Height 5 ft 6 in Weight 149 lb BMI 24.0 BP 110/72 Blood Pressure Location Lt brachial Position Sitting Intake Visit Reasons: Annual Exam Intake Note: Patient here for an annual physical exam Cardiac Catheterization Technologist Required: No Accompanied by: Self / Same As Patient Allergies zolpidem [From Ambien] Adverse Reaction (Intermediate, Verified 11/25/24 17:52) loopiness Medication List - Last Reconciled 11/25/24 by Alysha Armendariz MD atorvastatin 20 mg PO BEDTIME 90 days blood sugar diagnostic (BodBotTouch Verio test strips) As directed clonazepam 1 mg PO DAILY PRN insulin aspart U-100 (Novolog U-100 Insulin aspart) Sliding scale subcutaneously daily with meals. insulin degludec (Tresiba U-100 Insulin) Sliding scale subcutaneously daily. Take up to 20 units in the am and evening. insulin syr/ndl U100 half shaniqua (BD Veo Insulin Syringe Ultra-Fine (half unit)) As directed levothyroxine (Levoxyl) 175 mcg PO DAILY 90 days modafinil 100 mg PO BID silodosin (Rapaflo) 8 mg PO DAILY Tobacco use date assessed: 11/25/24 Dental Screening Dental Screen Date: 11/25/24 Did you have a dental visit in the last 12 months?: No Did you have a dental problem in the last 6 months where you did not have access to dental care?: No Was dental information given to patient?: Patient has dentist HPI HPI Comments History of Present Illness Details This is a 44 year old male with diabetes mellitus type 1 and mild major depression that comes for his physical exam. A1c within goal and diabetes mellitus and postoperative hypothyroidism are follow by Endocrinology. Mild major depression follow by Psychiatry. Last tetanus vaccine was about 7 years ago. No need for colonoscopy at the moment. No acute complaints. COUNT INCLUDES THE [facility] Medical History (Updated 11/25/24 @ 19:58 by Alysha Armendariz MD) Leukopenia Chronic fatigue Physical exam Postoperative hypothyroidism Graves disease Diabetes mellitus type 1 Surgical History History of wisdom tooth extraction History of shoulder surgery History of thyroid surgery Family History Mother No problems noted. Father No problems noted. 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 1. Little interest or pleasure in doing things: not at all 2. Feeling down, depressed, or hopeless: not at all 3. Trouble falling or staying asleep, or sleeping too much: not at all 4. Feeling tired or having little energy: not at all 5. Poor appetite or overeating: not at all 6. Feeling bad about yourself - or that you are a failure or have let yourself or your family down: not at all 7. Trouble concentrating on things, such as reading the newspaper or watching television: not at all 8. Moving or speaking so slowly that other people could have noticed. Or the opposite - being so fidgety or restless that you have been moving around a lot more than usual: not at all 9. Thoughts that you would be better off or of hurting yourself in some way: not at all Total score: 0 Depression Screening Interpretation: Negative Depression Screening Done: Yes 85888 - PHQ-9 Billing: Yes Source: Developed by Drs. Oscar Santos, Kinza Aiken, Jim Conroy and colleagues, with an educational josefina from [employer]. Thrive Questionnaire Date Thrive assessed: 11/25/24 I am a: Patient What is your living situation today?: I have a steady place to live Within the past 12 months, did the food you bought not last and you didn't have the money to get more?: Never true Within the past 12 months, did you worry whether your food would run out before you got money to buy more?: Never true Do you have trouble paying for medicines?: No Do you have trouble getting transportation to medical appointments?: No Do you have trouble paying your heating and electricity bill?: No Do you have trouble taking care of your child, family member or friend?: No Do you have trouble with day-to-day activities such as bathing, preparing meals, shopping, managing finances, etc.?: No Are you currently unemployed and looking for a job?: No Are you interested in more education?: No Please select the resources that you would like help with: None Currently or been in a relationship where the following occur: No concerns reported THRIVE Score: 0 AUDIT C Alcohol Use Questionnaire (AUDIT-C) 1. How often do you have a drink containing alcohol?: Never Total Score: 0 Score Reviewed/Action Taken: No SHEILA-7 AMB Questionnaire SHEILA-7 Date SHEILA - 7 assessed: 11/25/24 Feeling nervous, anxious, or on edge: 0 = Not at all Not being able to stop or control worryin = Not at all Worrying too much about different things: 0 = Not at all Trouble relaxin = Not at all Being so restless that it is hard to sit still: 0 = Not at all Becoming easily annoyed or irritable: 0 = Not at all Feeling afraid as if something awful might happen: 0 = Not at all Total SHEILA-7 score (0-4 normal; 5-9 mild; 10-14 moderate; 15-21 severe): 0 Source: Developed by Drs. Oscar Santos, Kinza Aiken, Jim Conroy and colleagues, with an educational josefina from [employer]. SHEILA-7 Assessment Billing SHEILA-7 Assessment Tool: SHEILA-7 Assessment 49507 Review of Systems Const All systems reviewed & are unremarkable except as noted in HPI and below Card Denies chest pain at rest, Denies chest pain with activity, Denies edema, Denies irregular heart rhythm, Denies claudication, Denies dyspnea, Denies dyspnea on exertion, Denies orthopnea, Denies paroxysmal nocturnal dyspnea and Denies slow heart rate Resp Denies cough, Denies dyspnea and Denies dyspnea on exertion GI Denies abdominal pain, Denies change in bowel habits, Denies excessive flatus, Denies nausea and Denies vomiting Denies urinary hesitancy, Denies urinary incontinence and Denies urinary urgency Musc Denies abnormal gait, Denies atrophy, Denies deformity and Denies limited range of motion Skin/Breast Denies bleeding lesions, Denies changing lesions and Denies rash Neuro Denies abnormal gait, Denies behavioral changes and Denies lack of coordination Psych Denies behavioral changes Physical exam (Primary Care) Vital Signs: Last Vital Signs BP 110/72 11/25/24 17:27 BMI result Body Mass Index 24.0 Tobacco/Smoking Status: Tobacco use Status Tobacco use date assessed 11/25/24 11/25/24 17:36 Patient Tobacco Use Status Former Tobacco user 11/25/24 17:36 Tobacco use type Cigarette 11/25/24 17:36 e-Cigarette/Vaping Use Never Used 11/25/24 17:36 PHQ-9: PHQ-9 Score PHQ-9: Total score 0 11/25/24 17:55 Depression Screening Interpretation: Negative Thrive Assessment: Date of Thrive Assessment Date Thrive assessed 11/25/24 11/25/24 17:36 Currently or been in a relationship where the following occur: No concerns reported [facility] Head: Yes normal to inspection, Yes normocephalic and Yes atraumatic Ears: external ears normal Eyes General: appearance normal, both eyes and all related structures Eyelids: Yes eyelids normal Conjunctivae: conjunctivae normal Neck Neck: Yes normal visual inspection and Yes supple Resp Effort & Inspection: normal respiratory effort Auscultation: clear to auscultation bilaterally Cardio Jugular venous distension: no JVD Rate: regular rate Rhythm: regular rhythm Heart sounds: S1 normal heart sound present and S2 normal heart sound present GI Inspection: Yes normal to inspection Palpation (GI): Soft to palpation and nontender Auscultation: normal bowel sounds Skin General skin exam: no rashes or lesions noted Neuro General: no focal motor deficits Extrem General: Yes full ROM Psych Appearance: grossly normal Results AMB Hemoglobin A1c AMB Hemoglobin A1c 5.1 % Last Edit by RED Pedro on 11/25/24 17:4 1 Results Reviewed Results Reviewed: Laboratory Last Values Hgb A1c (Clinic) 5.1 % (4.0-6.0) 11/25/24 17:26 Coding Level of Care Code Est Pt Prev Care 40-64y(43125) Diagnoses Physical exam Z00.00 Type 1 diabetes mellitus without complication E10.9 Diabetes mellitus complication status: without complication Mild major depression F32.0 Additional Codes SHEILA-7 Assessment Billing - SHEILA-7 Assessment Tool: SHEILA-7 Assessment 17387 ([id number]) PHQ-9 - 52956 - PHQ-9 Billing: Yes ([id number]) Time Spent (min) 30 Assessment & Plan Assessment & Plan (1) Physical exam: Code(s): Z00.00 - Encounter for general adult medical examination without abnormal findings Category: Medical (2) Diabetes mellitus type 1: Code(s): E10.9 - Type 1 diabetes mellitus without complications Category: Medical Qualifiers: Diabetes mellitus complication status: without complication Qualified Code(s): E10.9 - Type 1 diabetes mellitus without complications (3) Mild major depression: Code(s): F32.0 - Major depressive disorder, single episode, mild Category: Medical Plan Continue current medications. Follow-up with psychiatry and track repair laborer. Keep A1c within goal being less than 7%. Keep LDL goal less than 70. Plan tetanus vaccine in the next 3 years. Colonoscopy at 47 years old. Orders: Orders AMB Hemoglobin A1c Today E10.9 - Type 1 diabetes mellitus without complications Lipid Panel Today E78.5 - Hyperlipidemia, unspecified Microalbumin, Random (w Creat) Today R80.9 - Proteinuria, unspecified Comprehensive Mcdaniel. Panel Fast Today E10.9 - Type 1 diabetes mellitus without complications Thyroid Stimulating Hormone Today E89.0 - Postprocedural hypothyroidism
[2024-11-25 17:27] VITALS: BP 110/72; BMI 24.0
--- OUTSIDE RECORDS SUMMARY | 2024-11-25 18:24 | XMS_ITS | Referral Summary ---
Author Organization [facility] Address [address] [place] [address] Care Team Providers Care Waterworks Operator Name Role Phone Renan MarcelloAlysha Primary Care Provider [phone] Allergies Active Allergy Reactions Criticality Noted Date [...] Administration Dates Next Due Covid-19, Pfizer, mRNA, [place] valent, PF 30 mcg/0.3 mL dose (for [...] Not on file Procedures * Due to [place] state law, this organization might not be sharing negative HIV tests. Procedure Name Priority Date/Time Associated Diagnosis Comments POCT GLYCOSYLATED HEMOGLOBIN (HGB A1C) Routine 01/18/2023 2:46 PM EDT from Last 3 Months or Most Recently Relevant to Health Maintenance Results * Due to [place] state law, this organization might not be sharing negative HIV tests. * POCT Glycosylated Hemoglobin (HGB A1C), interfaced (01/18/2023 2:46 PM EDT) Hemoglobin A1C, POCT 4.6 <=5.6 % 01/18/2023 3:04 PM EDT [facility] Comment: A1C Recommendation for Non- Adults with Diabetes: <7.0% ADA 2011 Standards of Medical Care in Diabetes Blood 01/18/2023 2:46 PM EDT 01/18/2023 3:04 PM EDT us Devi Khalil MD LAB POCT ORDERABLES - DEVICE Fin al Result [facility] [address] [place] [address], from Last 3 Months or Most Recently Relevant to Health Maintenance Insurance [facility] PPO/EPO Care Teams Waterworks Operator Relationship Specialty Start Date End Date Alysha Garza [address] [place] [address] [place] [address] PCP - General Internal Medicine 01/18/23
== END 2024-11-25 18:02 | disposition home or self-care (01) ==
LOC: HO.HMCH 17:19
PROVIDERS: PCP Internal Medicine; Visit Provider Internal Medicine
DX: Z00.00 Encounter for general adult medical examination without abnormal findings (principal); E10.9 Type 1 diabetes mellitus without complications; F32.0 Major depressive disorder, single episode, mild

== ENCOUNTER → 2024-11-25 17:18 | Outpatient (BNVA) | payer BC, SELFPAY | PROVIDERS: PCP Internal Medicine; Visit Provider Internal Medicine | DX: Z00.00 Encounter for general adult medical examination without abnormal findings (principal); E10.9 Type 1 diabetes mellitus without complications; E89.0 Postprocedural hypothyroidism; F32.0 Major depressive disorder, single episode, mild; E78.5 Hyperlipidemia, unspecified; R80.9 Proteinuria, unspecified | CPT/HCPCS: 83036; 96127 ==

== ENCOUNTER 2024-12-28 15:45 | Outpatient (AMB) | payer BC, SELFPAY ==
--- NOTE | 2024-12-28 14:54 | A.OFFVIS_ITS ---
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 insulin degludec (Tresiba U-100 Insulin) Sliding scale subcutaneously daily. Take up to 20 units in the am and evening. insulin syr/ndl U100 half shaniqua (BD Veo Insulin Syringe Ultra-Fine (half unit)) As directed levothyroxine (Levoxyl) 175 mcg PO DAILY 90 days modafinil 100 mg PO BID silodosin (Rapaflo) 8 mg PO DAILY HPI Comments Details: 12/28/24--On Rapaflo 09/10/24-- History of Present Illness The patient is a 43-year-old male presenting with urinary symptoms management and evaluation. He reports persistent post-void dribbling, noted to be ongoing and bothersome, affecting his quality of life. The symptoms began subsequent to the use of hydroxyzine, which caused urinary retention, with some symptomatic relief upon cessation. His medical history is significant for type 1 diabetes mellitus controlled by insulin injections. Previous intermittent use of gabapentin for sleep, discontinued approximately one month prior, did not resolve urinary symptoms. Current management techniques include double voiding and manual perineal pressure, though efficacy varies. The chronic nature of symptoms and associated distress has led to this consultation. Tests and Diagnostics: - Ultrasound of kidneys and bladder: Normal kidneys; bladder within normal limits with nonspecific small calcifications, adequate emptying noted. 08/10/24--Kit is a 43-year-old male who is here for evaluation with complaints of postvoid dribbling. He has type 1 diabetic. Comorbidity diabetes He denies dysuria gross hematuria. He denies pain with ejaculation. He states that he was using Benadryl and hydroxyzine in the past which he discontinued and noted some mild improvement in dribbling symptoms. I have discussed further evaluation with ultrasound of the urinary tract. Will consider alpha-dewey. Patient agreeable to plan [facility] Medical History Leukopenia Chronic fatigue Physical exam Postoperative hypothyroidism Graves disease Diabetes mellitus type 1 Surgical History History of wisdom tooth extraction History of shoulder surgery History of thyroid surgery Family History Mother No problems noted. Father No problems noted. 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 Current occupational exposures/hazards: No Cognitive needs: No Hearing needs: No Vision needs: No Review of Systems Const All systems reviewed & are unremarkable except as noted in HPI and below Reports no additional complaints Eyes Reports no additional complaints ENT Reports no additional complaints Card Reports no additional complaints Resp Reports no additional complaints GI Reports no additional complaints Reports as per HPI Musc Reports no additional complaints Skin/Breast Reports system reviewed and no additional complaints, except as documented Neuro Reports no additional complaints Psych Reports no additional complaints Endo Reports no additional complaints Willis/Lymph Reports no additional complaints Aller/Immun Reports no additional complaints Results AMB Urinalysis, Automated UA Leukoctes 0 Marci/uL Last Edit by Judie Stephens on 12/28/24 16:41 UA Nitrite Negative Last Edit by Judie Stephens on 12/28/24 16:41 UA Urobilinogen 17 mg/dL Last Edit by Judie Stephens on 12/28/24 16:41 UA Protein 1 mg/dL Last Edit by Judie Stephens on 12/28/24 16:41 UA pH 5.5 Last Edit by Judie Stephens on 12/28/24 16:41 UA Blood 0 Wes/uL Last Edit by Judie Stephens on 12/28/24 16:41 UA Specific [place] 1.015 Last Edit by Judie Stephens on 12/28/24 16:41 UA Ketone Positive Last Edit by Judie Stephens on 12/28/24 16:41 UA Bilirubin 0 mg/dL Last Edit by Judie Stephens on 12/28/24 16:41 UA Glucose 0 mg/dL Last Edit by Judie Stephens on 12/28/24 16:41 Assessment & Plan Assessment & Plan (1) Benign prostatic hyperplasia (BPH) with post-void dribbling: Code(s): N40.1 - Benign prostatic hyperplasia with lower urinary tract symptoms; N39.43 - Post-void dribbling Category: Medical (2) Diabetes mellitus type 1: Code(s): E10.9 - Type 1 diabetes mellitus without complications Category: Medical Qualifiers: Diabetes mellitus complication status: without complication Qualified Code(s): E10.9 - Type 1 diabetes mellitus without complications Orders: Orders AMB Urinalysis Automated Today Z13.9 - Encounter for screening, unspecified Medications: Changed From silodosin (Rapaflo) must administer with a meal/food 8 mg PO DAILY 30 caps 5RF To silodosin (Rapaflo) must administer with a meal/food, take with breakfast 8 mg PO DAILY 90 caps 2RF Scribe Plan - Not visible on output: Patient was informed and verbally consented to the use of an ambient scribe for clinic note documentation during this visit. Coding Diagnoses Benign prostatic hyperplasia (BPH) with post-void dribbling N40.1; N39.43 Type 1 diabetes mellitus without complication E10.9 Diabetes mellitus complication status: without complication
--- OUTSIDE RECORDS SUMMARY | 2024-12-28 16:49 | XMS_ITS | Referral Summary ---
Author Organization [facility] Address [address] [place] [address] Care Team Providers Care Cupola Melter Name Role Phone Renan MarcelloAlysha Primary Care Provider [phone] Allergies Active Allergy Reactions Criticality Noted Date [...] Administration Dates Next Due Covid-19, Pfizer, mRNA, [place] valent, PF 30 mcg/0.3 mL dose (for [...] Not on file Procedures * Due to [place] state law, this organization might not be sharing negative HIV tests. Procedure Name Priority Date/Time Associated Diagnosis Comments POCT GLYCOSYLATED HEMOGLOBIN (HGB A1C) Routine 01/18/2023 2:46 PM EDT from Last 3 Months or Most Recently Relevant to Health Maintenance Results * Due to [place] state law, this organization might not be sharing negative HIV tests. * POCT Glycosylated Hemoglobin (HGB A1C), interfaced (01/18/2023 2:46 PM EDT) Hemoglobin A1C, POCT 4.6 <=5.6 % 01/18/2023 3:04 PM EDT [facility] Comment: A1C Recommendation for Non- Adults with Diabetes: <7.0% ADA 2011 Standards of Medical Care in Diabetes Blood 01/18/2023 2:46 PM EDT 01/18/2023 3:04 PM EDT us Devi Khalil MD LAB POCT ORDERABLES - DEVICE Fin al Result [facility] [address] [place] [address], from Last 3 Months or Most Recently Relevant to Health Maintenance Insurance [facility] PPO/EPO Care Teams Cupola Melter Relationship Specialty Start Date End Date Alysha Garza [address] [place] [address] [place] [address] PCP - General Internal Medicine 01/18/23
== END 2024-12-28 16:19 | disposition home or self-care (01) ==
LOC: HO.HUSH 15:45
PROVIDERS: PCP Internal Medicine; Visit Provider Urology
DX: Z13.9 Encounter for screening, unspecified (principal)

== ENCOUNTER → 2024-12-28 15:45 | Outpatient (BNVA) | payer BC, SELFPAY | PROVIDERS: PCP Internal Medicine; Visit Provider Urology | DX: N40.1 Benign prostatic hyperplasia with lower urinary tract symptoms (principal) | CPT/HCPCS: 81003 ==